=== PATIENT | female | born 1995 | race Caucasian/White ===

== ENCOUNTER 2023-01-13 11:33 | Emergency (ER) | payer MEDICAID, SELFPAY ==
[2023-01-13 11:35] VITALS: BP 128/79; PULSE 88; RESP 18; TEMP 36.7; O2SAT 96; BMI 32.8
[2023-01-13 11:57] LABS: Microscopic, Urine URINE MICROSCOPIC (MICROSCOPIC)
--- NOTE | 2023-01-13 11:57 | HMH.EDGENADL ---
Discharge Plan Disposition Patient Disposition: Home, Self-Care Prescriptions Prescriptions: New ibuprofen 800 mg tablet 800 mg PO TID PRN (Reason: pain) 7 Days Qty: 20 0RF ondansetron 4 mg tablet,disintegrating 4 mg PO Q6H PRN (Reason: nausea and vomiting) 5 Days Qty: 20 0RF cefdinir 300 mg capsule 300 mg PO BID 10 Days Qty: 20 0RF Referrals Follow up/Referrals: Mariposa Dunaway APRN [Primary Care Provider] - See instructions Activity Restrictions/Add. Instructions Additional Instructions/Restrictions: There is some diagnostic uncertainty with your case. With your recent urinary tract infection being on the medication that does not get good renal penetration now with your tenderness over your right kidney clinically I am treating you for acute pyelonephritis which is an infection of your kidney. Urine culture has been sent please follow-up on this in 2 to 3 days to make sure you are on the right antibiotic if there is any growth. That being said your urinalysis today was unremarkable from an infectious standpoint there is no blood there is also no evidence of hydronephrosis or swelling of your kidney on bedside ultrasound. In an effort to decrease radiation exposure we opted to not get a CT scan but if your symptoms worsen namely worsening nausea vomiting abdominal pain high fevers please return to the emergency department to broaden our differential. Please keep your appointment with urology as scheduled. Clinical Impressions Clinical Impression: Pyelonephritis Instructions Patient Instructions: DI for Urinary Tract Infection (UTI), DI for Urinary Tract Infection in Children Discharge ED Provider: Haley Pham General Adult HPI General Chief complaint: Urogenital-Female Stated complaint: Rt side lower back pain Time Seen by Provider: 01/13/23 11:39 Mode of Arrival: Ambulatory Source of Information: Patient Limitations: No Limitations Description of Symptoms (Recalled from ER Triage Doc. by RN): Patient reports having a prolapsed bladder and recurrent UTIs. States she is currently on antibiotic for a UTI. Complaint of right sided back pain that started approx Dec 28. Patient spoke with urologist and was told to come to the er for evaluation History of Present Illness HPI narrative: Patient is a 27-year-old female here with right flank pain after recent diagnosis of urinary tract infection for which she is on Macrobid. States that she is followed by Dr. Lentz at [place] and is known to have bladder prolapse which caused her to have frequent urinary tract infections. States that some of her dysuria has improved but she has had some significant right constant flank pain which she states is around the kidney area. No intermittent component of this no hematuria that she is aware of. No fevers or chills. She has follow-up outpatient with urology for some unspecified imaging but they were unable to get her in today and told her to come to the emergency department. Related Data Previous Rx's Medication Instructions Recorded cefdinir 300 mg capsule 300 mg PO BID 10 days #20 caps 01/13/23 ibuprofen 800 mg tablet 800 mg PO TID PRN pain 7 days #20 01/13/23 tabs ondansetron 4 mg disintegrating 4 mg PO Q6H PRN nausea and 01/13/23 tablet vomiting 5 days #20 tabs Allergies Allergy/AdvReac Type Severity Reaction Status Date / Time ciprofloxacin [From Cipro] Allergy Verified 01/13/23 11:45 PFSH [facility] Disclaimer: The information contained in this section may have been updated after the patient was seen, as this information can be updated by other users. Social History Smoking Status: Current every day smoker alcohol intake: never current occupational status: other Travel in the last 8 weeks: None ROS Obtained: Yes All systems reviewed & no additional complaints except as documented Physical Exam General General appearance: alert Respiratory Respiratory exam: Present normal lung dany
[2023-01-13 12:00] VITALS: BP 113/68; PULSE 101; O2SAT 96
[2023-01-13 12:01] LABS: Appearance,Urine CLEAR (Clear); Blood, Urine Negative (Negative); Color,Urine YELLOW (Yellow); Glucose,Urine (UA) Negative (Negative); Ketones,Urine 1+ (Negative); Leukocyte Esterase,Urine Negative (Negative); Nitrate,Urine Negative (Negative); Protein,Urine Negative (Negative); Urobilinogen,Urine 0.2 EU/dl (0.2)
[2023-01-13 12:02] VITALS: BP 104/65; PULSE 83; O2SAT 96
[2023-01-13 12:11] LABS: Urine Pregnancy, HCG Qual. Negative (Negative)
[2023-01-13 12:14] LABS: Bilirubin,Urine 1+ (Negative)
[2023-01-13 12:23] LABS: Basophils % 0.3 % (0.1-2.0); Eosinophils # 0.2 K/mm3 (0.0-0.4); Eosinophils % 2.5 % (0.1-12.0); Hematocrit 40.8 % (37.0-47.0); Hemoglobin 13.8 g/dL (12.2-16.2); Lymphocytes % 31.3 % (10-50); Mean Corpuscular HGB Conc 33.9 g/dL (31.8-35.4); Mean Corpuscular Hemoglobin 31.1 pg (27.0-31.2); Mean Corpuscular Volume 91.8 fl (81-99); Mean Platelet Volume 7.3 fl (7.4-10.4); Monocytes # 0.3 K/mm3 (0.1-1.0); Monocytes % 4.7 % (1.7-9.3); Neutrophils % 61.3 % (37.0-80.0); Platelet Count 352 K/mm3 (142-424); Red Blood Count 4.44 M/mm3 (4.20-5.40); White Blood Count 6.5 K/mm3 (4.8-10.8)
[2023-01-13 12:28] LABS: Alanine Aminotransferase 23 U/L (12-78); Albumin Level 4.3 g/dl (3.5-5.0); Albumin/Globulin Ratio 1.3 (1.1-1.8); Alkaline Phosphatase 60 U/L (38-126); Anion Gap 11.1 mEq/L (5-15); Aspartate Amino Transferase 29 U/L (14-36); Bilirubin,Total 0.5 mg/dl (0.2-1.3); Blood Urea Nitrogen 15 mg/dl (7-17); Carbon Dioxide 26 mmol/L (22.0-30.0); Chloride 106 mmol/L (98-107); Creatinine Clearance Estimated 214 mL/min (50-200); Estimated Glomerular Filt Rate 121 ml/min (>60); GFR (African American) 146 ML/MIN (>60); Globulin 3.2 g/dL (1.3-3.2); Glucose 104 mg/dl (74-100); Potassium 4.1 mmoL/L (3.5-5.1); Sodium 139 mmol/L (136-145); Total Protein,Serum 7.5 g/dl (6.3-8.2)
[2023-01-13 13:17] VITALS: BP 129/88; PULSE 78; RESP 18; TEMP 36.7; O2SAT 98
== END 2023-01-13 13:18 | disposition home or self-care (01) ==
PROVIDERS: Emergency Provider Student in an Organized Health Care Education/Training Program; PCP Nurse Practitioner Family
DX: N10 Acute pyelonephritis (principal); M54.59 Other low back pain; R11.2 Nausea with vomiting, unspecified; F17.210 Nicotine dependence, cigarettes, uncomplicated
CPT/HCPCS: 80053; 81001; 81025; 85025; 87086; 96361; 96374; 96375; 99284; J0131; J2405

== ENCOUNTER 2023-01-14 18:20 | Emergency (ER) | payer MEDICAID, SELFPAY ==
[2023-01-14 18:21] VITALS: BP 153/84; PULSE 89; RESP 18; TEMP 36.6; O2SAT 97; BMI 33.3
--- NOTE | 2023-01-14 18:28 | PC.NURSE ---
family and staff at
[2023-01-14 19:00] VITALS: BP 147/94; PULSE 94; RESP 18; O2SAT 97
--- NOTE | 2023-01-14 19:07 | CT_ITS ---
PROCEDURE INFORMATION: Exam: CT Abdomen And Pelvis With Contrast Exam date and time: 01/14/2023 8:03 PM Age: 27 years old Clinical indication: Abdominal pain; Other: R flank; Additional info: R flank pain, concern for pyelonephritis TECHNIQUE: Imaging protocol: Computed tomography of the abdomen and pelvis with contrast. Radiation optimization: All CT scans at this facility use at least one of these dose optimization techniques: automated exposure control; mA and/or kV adjustment per patient size (includes targeted exams where dose is matched to clinical indication); or iterative reconstruction. Contrast material: ISOVUE 370; Contrast volume: 75 ml; Contrast route: IV; REPORTING DATA: Count of CT and Cardiac NM exams in prior 12 months: This patient has received 0 known CTs and 0 known cardiac nuclear medicine studies in the 12 months prior to the current study. COMPARISON: No relevant prior studies available. FINDINGS: Liver: Mild fatty infiltration of the liver along the falciform ligament. Possible hepatic steatosis. Gallbladder and bile ducts: Normal. No calcified stones. No ductal dilation. Pancreas: Normal. No ductal dilation. Spleen: Normal. No splenomegaly. Adrenal glands: Normal. No mass. Kidneys and ureters: Normal. No hydronephrosis. Stomach and bowel: Unremarkable. No obstruction. No mucosal thickening. Appendix: Unremarkable appendix. Intraperitoneal space: Unremarkable. No free air. No significant fluid collection. Vasculature: Unremarkable. No abdominal aortic aneurysm. Lymph nodes: Unremarkable. No enlarged lymph nodes. Urinary bladder: Mild nonspecific urinary bladder wall thickening. Reproductive: Unremarkable as visualized. Bones/joints: Old bilateral rib fractures. Soft tissues: Tiny fat containing umbilical hernia. Other findings: Stigmata of old granulomatous disease. IMPRESSION: Mild nonspecific urinary bladder wall thickening. Please exclude infection.
--- NOTE | 2023-01-14 19:15 | PC.NURSE ---
Report handed off to Shakeel ESTEBAN
--- NOTE | 2023-01-14 19:16 | HMH.EDGENADL ---
Discharge Plan Disposition Patient Disposition: Home, Self-Care Condition: Good Prescriptions Prescriptions: New lidocaine 5 % adhesive patch,medicated 1 patch topical Q24H Qty: 15 0RF Rx Instructions: leave on most painful area for up to 12 hrs methocarbamol 500 mg tablet 500 mg PO Q8H 7 Days Qty: 21 0RF No Action ibuprofen 800 mg tablet 800 mg PO TID PRN (Reason: pain) 7 Days Qty: 20 0RF ondansetron 4 mg tablet,disintegrating 4 mg PO Q6H PRN (Reason: nausea and vomiting) 5 Days Qty: 20 0RF cefdinir 300 mg capsule 300 mg PO BID 10 Days Qty: 20 0RF Referrals Follow up/Referrals: Mariposa Dunaway APRN [Primary Care Provider] - See instructions Activity Restrictions/Add. Instructions Additional Instructions/Restrictions: You have been evaluated in the ED for your complaints. You may follow-up with your PCP in the next 3 to 5 days. Please return to ED for any new or worsening symptoms. I have provided you with lidocaine patches to further assist with your discomfort. I have also ordered for Robaxin. Please take these as needed. Please continue taking your antibiotics as prescribed. Clinical Impressions Clinical Impression: Right flank pain, Back pain Instructions Patient Instructions: DI for Acute Abdominal Pain Discharge ED Provider: John Partida Adult HPI General Chief complaint: Abdominal Pain Stated complaint: lower back and side pain Time Seen by Provider: 01/14/23 18:30 Mode of Arrival: Ambulatory Source of Information: Patient Limitations: No Limitations Description of Symptoms (Recalled from ER Triage Doc. by RN): Presents to ED with c/o constant 7/10 right sided flank pain and diarrhea. Patient reports being seen yesterday in the ER with the same chief complaint and was D/C'd with no relief. Patient states this has been going on for 19 days now that started off as a UTI but has progressively gotten worse. Patient Rx'd Macrobid and Cefdinir. Denies fever. 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 Denies urinary symptoms History of Present Illness HPI narrative: 27-year-old female with past medical history significant for prolapsed bladder, recurrent UTIs on Macrobid daily, asthma, anxiety, depression, DM on metformin, presents today for evaluation concerning right-sided flank pain that is persisted since December 28. Her pain today does not radiate. She states that she was seen in the ED yesterday and was diagnosed with pyelonephritis and discharged with prescription for cefdinir to treat. She denies having any fevers, chills, chest pain, shortness of breath, abdominal pain, nausea, vomiting. She does report that she has been having nonbloody diarrhea over the past 3 days. She took ibuprofen and her milligrams 1 hour prior to arrival. No further complaints at this time Related Data Previous Rx's Medication Instructions Recorded cefdinir 300 mg capsule 300 mg PO BID 10 days #20 caps 01/13/23 ibuprofen 800 mg tablet 800 mg PO TID PRN pain 7 days #20 01/13/23 tabs ondansetron 4 mg disintegrating 4 mg PO Q6H PRN nausea and 01/13/23 tablet vomiting 5 days #20 tabs lidocaine 5 % topical patch 1 patch topical Q24H #15 ea 01/14/23 methocarbamol 500 mg tablet 500 mg PO Q8H 7 days #21 tabs 01/14/23 Allergies Allergy/AdvReac Type Severity Reaction Status Date / Time adhesive tape Allergy Rash Verified 01/14/23 19:19 ciprofloxacin [From Cipro] Allergy Verified 01/13/23 11:45 PFSH PFSH Disclaimer: The information contained in this section may have been updated after the patient was seen, as this information can be updated by other users. Social History (Updated 01/13/23 @ 12:53 by Haley Pham MD) Smoking Status: Current every day smoker alcohol intake: never current occupational status: other Travel in the last 8 weeks: None ROS Obtained: Yes All systems reviewed & no additional complaints except as documented Physical Exam General General appearance:
[2023-01-14 19:22] LABS: Microscopic, Urine URINE MICROSCOPIC (MICROSCOPIC)
[2023-01-14 19:25] LABS: Basophils # 0.1 K/mm3 (0-0.2); Basophils % 0.6 % (0.1-2.0); Eosinophils # 0.2 K/mm3 (0.0-0.4); Eosinophils % 2.5 % (0.1-12.0); Hematocrit 41.5 % (37.0-47.0); Lymphocytes # 2.5 K/mm3 (0.7-4.5); Lymphocytes % 26.8 % (10-50); Mean Corpuscular HGB Conc 33.7 g/dL (31.8-35.4); Mean Corpuscular Hemoglobin 31.4 pg (27.0-31.2); Mean Corpuscular Volume 93.2 fl (81-99); Mean Platelet Volume 7.8 fl (7.4-10.4); Monocytes # 0.3 K/mm3 (0.1-1.0); Monocytes % 3.5 % (1.7-9.3); Neutrophils # 6.2 K/mm3 (1.8-7.8); Neutrophils % 66.5 % (37.0-80.0); Platelet Count 366 K/mm3 (142-424); Red Blood Count 4.45 M/mm3 (4.20-5.40); Red Cell Distribution Width 13.2 % (11.5-17.5); White Blood Count 9.3 K/mm3 (4.8-10.8)
[2023-01-14 19:30] VITALS: BP 125/84; PULSE 86; RESP 20; O2SAT 98
--- NOTE | 2023-01-14 19:33 | PC.NURSE ---
Sit visit with pt, introduced myself after shift change, administered medication, no acute distress noted/reported
[2023-01-14 19:37] LABS: Appearance,Urine CLEAR (Clear); Bilirubin,Urine Negative (Negative); Blood, Urine Negative (Negative); Color,Urine YELLOW (Yellow); Glucose,Urine (UA) Negative (Negative); Ketones,Urine TRACE (Negative); Leukocyte Esterase,Urine Negative (Negative); Nitrate,Urine Negative (Negative); PH,Urine 6.5 (5.0-8.5); Protein,Urine Negative (Negative); Specific Gravity, Urine 1.025 (1.005-1.030); Urobilinogen,Urine 0.2 EU/dl (0.2)
[2023-01-14 19:38] LABS: Alanine Aminotransferase 20 U/L (12-78); Albumin Level 4.6 g/dl (3.5-5.0); Albumin/Globulin Ratio 1.5 (1.1-1.8); Alkaline Phosphatase 59 U/L (38-126); Anion Gap 13.9 mEq/L (5-15); Aspartate Amino Transferase 26 U/L (14-36); Bilirubin,Total 0.3 mg/dl (0.2-1.3); Blood Urea Nitrogen 14 mg/dl (7-17); Calcium 9.4 mg/dl (8.4-10.2); Carbon Dioxide 26 mmol/L (22.0-30.0); Chloride 104 mmol/L (98-107); Creatinine Clearance Estimated 186 mL/min (50-200); Estimated Glomerular Filt Rate 101 ml/min (>60); GFR (African American) 122 ML/MIN (>60); Globulin 3.1 g/dL (1.3-3.2); Glucose 90 mg/dl (74-100); Lipase 147 U/L (23-300); Potassium 3.9 mmoL/L (3.5-5.1); Sodium 140 mmol/L (136-145); Total Protein,Serum 7.7 g/dl (6.3-8.2)
[2023-01-14 19:49] LABS: HCG Qualitative, Serum Negative (Negative)
[2023-01-14 19:53] LABS: RBC,Urine Occasional #/hpf (0-3)
[2023-01-14 19:54] LABS: Bacteria,Urine Trace /lpf; Mucus,Urine 3+ /lpf
[2023-01-14 20:12] LABS: Lactic Acid < 0.5 mmol/L (0.7-2.1)
[2023-01-14 20:31] VITALS: BP 129/79; PULSE 92; RESP 18; O2SAT 99
--- NOTE | 2023-01-14 20:38 | PC.NURSE ---
Reassessed pt after 2nd pain medication administration, reports pain relieved from previous 11/06 to 09/06, reports increased nausea since administration, advised would notify provider.
[2023-01-14 21:00] VITALS: BP 140/65; PULSE 94; RESP 16; O2SAT 96
--- NOTE | 2023-01-14 22:25 | PC.NURSE ---
patient reassessed after administration of toradol, reports pain 5/10, advised that provider is making rounds and will consult momentarily
[2023-01-14 22:46] VITALS: BP 124/88; PULSE 88; RESP 16; TEMP 36.7
== END 2023-01-14 22:48 | disposition home or self-care (01) ==
PROVIDERS: Emergency Provider Emergency Medicine; PCP Nurse Practitioner Family
DX: R10.31 Right lower quadrant pain (principal); M54.59 Other low back pain; F17.210 Nicotine dependence, cigarettes, uncomplicated; E11.9 Type 2 diabetes mellitus without complications; J45.909 Unspecified asthma, uncomplicated; F41.9 Anxiety disorder, unspecified; F32.A Depression, unspecified; Z79.84 Long term (current) use of oral hypoglycemic drugs
CPT/HCPCS: 74177; 80053; 81001; 83605; 83690; 84703; 85025; 96374; 96375; 96376; 99284; J2405; Q9967

== ENCOUNTER 2023-01-20 18:39 | Emergency (ER) | payer MEDICAID, SELFPAY ==
[2023-01-20 18:40] VITALS: BP 142/86; PULSE 89; RESP 20; TEMP 36.8; O2SAT 99; BMI 33.8
[2023-01-20 19:41] LABS: Microscopic, Urine URINE MICROSCOPIC (MICROSCOPIC)
[2023-01-20 19:42] LABS: Appearance,Urine CLEAR (Clear); Bilirubin,Urine Negative (Negative); Blood, Urine 3+ (Negative); Color,Urine YELLOW (Yellow); Glucose,Urine (UA) Negative (Negative); Ketones,Urine Negative (Negative); Leukocyte Esterase,Urine Negative (Negative); Nitrate,Urine Negative (Negative); Protein,Urine Negative (Negative); Urobilinogen,Urine 0.2 EU/dl (0.2)
[2023-01-20 20:01] LABS: Squamous Epithelial Cell,Urine Occasional #/hpf (0-5); WBC,Urine Occasional #/hpf (0-3)
--- NOTE | 2023-01-20 20:19 | HMH.EDGENADL ---
Discharge Plan Disposition Patient Disposition: Home, Self-Care Prescriptions Prescriptions: New prednisone 20 mg tablet 40 mg PO BID 5 Days Qty: 20 0RF No Action lidocaine 5 % adhesive patch,medicated 1 patch topical Q24H Qty: 15 0RF Rx Instructions: leave on most painful area for up to 12 hrs methocarbamol 500 mg tablet 500 mg PO Q8H 7 Days Qty: 21 0RF ibuprofen 800 mg tablet 800 mg PO TID PRN (Reason: pain) 7 Days Qty: 20 0RF ondansetron 4 mg tablet,disintegrating 4 mg PO Q6H PRN (Reason: nausea and vomiting) 5 Days Qty: 20 0RF cefdinir 300 mg capsule 300 mg PO BID 10 Days Qty: 20 0RF Referrals Follow up/Referrals: Mariposa Dunaway APRN [Primary Care Provider] - See instructions Activity Restrictions/Add. Instructions Additional Instructions/Restrictions: Call your family doctor to establish care for this visit to the emergency department and schedule follow-up within 48 hours to ensure improvement. If you have any worsening of your condition or any other concerning signs or symptoms, return to the emergency department or your primary care doctor for further evaluation. See your family doctor about scheduling physical therapy. Take prednisone daily for 5 days. Talk to your CHILD DEVELOPMENT ASSOCIATE TEACHER about a pessary or other nonsurgical fixes for bladder prolapse. Clinical Impressions Clinical Impression: Back pain Instructions Patient Instructions: DI for Low Back Pain Discharge ED Provider: Caleb Galo General Adult HPI General Chief complaint: Back Pain/Injury Stated complaint: lower back pain Time Seen by Provider: 01/20/23 19:01 Mode of Arrival: Ambulatory Source of Information: Patient Limitations: No Limitations Description of Symptoms (Recalled from ER Triage Doc. by RN): Pt presents with mid thoracic and lumbar pain x 1month. Denies any loss of bowel or bladder control. Previously seen for this issue, given muscle relaxer and anti inflammatory medication, no relief with them. History of Present Illness HPI narrative: 27-year-old female history of chronic UTIs, bladder prolapse presenting with midline back pain. Atraumatic, this has been going on for about a month. No neurologic deficits, patient has tried lidocaine patches, Tylenol Motrin, nothing seem to help. No fevers or chills, nausea or vomiting, dysuria or hematuria. Related Data Previous Rx's Medication Instructions Recorded cefdinir 300 mg capsule 300 mg PO BID 10 days #20 caps 01/13/23 ibuprofen 800 mg tablet 800 mg PO TID PRN pain 7 days #20 01/13/23 tabs ondansetron 4 mg disintegrating 4 mg PO Q6H PRN nausea and 01/13/23 tablet vomiting 5 days #20 tabs lidocaine 5 % topical patch 1 patch topical Q24H #15 ea 01/14/23 methocarbamol 500 mg tablet 500 mg PO Q8H 7 days #21 tabs 01/14/23 prednisone 20 mg tablet 40 mg PO BID 5 days #20 tabs 01/20/23 Allergies Allergy/AdvReac Type Severity Reaction Status Date / Time adhesive tape Allergy Rash Verified 01/14/23 19:19 ciprofloxacin [From Cipro] Allergy [facility]13/23 [facility]:[address] [facility] Disclaimer: The information contained in this section may have been updated after the patient was seen, as this information can be updated by other users. Social History (Updated 01/13/23 @ 12:53 by Haley Pham MD) Smoking Status: Current every day smoker alcohol intake: never current occupational status: other Travel in the last 8 weeks: None ROS Obtained: Yes All systems reviewed & no additional complaints except as documented Physical Exam General General appearance: alert and in no apparent distress Head Head exam: atraumatic and normocephalic Eye Eye exam: Present normal appearance, PERRL and EOMI ENT ENT exam: Present mucous membranes moist Neck Neck exam: Present normal inspection, full ROM and trachea midline Respiratory Respiratory exam: Absent respiratory distress, wheezes, stridor, accessory muscle use or prolonged expiratory phase Cardio
[2023-01-20 22:20] VITALS: BP 116/73; PULSE 77; RESP 18; TEMP 36.6; O2SAT 99
== END 2023-01-20 22:21 | disposition home or self-care (01) ==
PROVIDERS: Emergency Provider Emergency Medicine; PCP Nurse Practitioner Family
DX: M54.50 Low back pain, unspecified (principal)
CPT/HCPCS: 81001; 99284

== ENCOUNTER 2023-03-02 17:20 | Emergency (ER) | payer MEDICAID, SELFPAY ==
[2023-03-02 17:21] VITALS: BP 121/69; PULSE 94; RESP 16; TEMP 36.6; O2SAT 100; BMI 32.8
--- NOTE | 2023-03-02 18:00 | PC.NURSE ---
Dr. Pham at [facility] for pt eval
[2023-03-02 18:01] LABS: Basophils % 0.5 % (0.1-2.0); Eosinophils # 0.1 K/mm3 (0.0-0.4); Eosinophils % 1.2 % (0.1-12.0); Lymphocytes # 3.3 K/mm3 (0.7-4.5); Lymphocytes % 35.3 % (10-50); Mean Corpuscular HGB Conc 33.2 g/dL (31.8-35.4); Mean Corpuscular Hemoglobin 30.9 pg (27.0-31.2); Mean Corpuscular Volume 93.1 fl (81-99); Mean Platelet Volume 7.8 fl (7.4-10.4); Monocytes # 0.4 K/mm3 (0.1-1.0); Neutrophils # 5.5 K/mm3 (1.8-7.8); Platelet Count 363 K/mm3 (142-424); Red Blood Count 4.51 M/mm3 (4.20-5.40); Red Cell Distribution Width 13.3 % (11.5-17.5); White Blood Count 9.2 K/mm3 (4.8-10.8)
[2023-03-02 18:10] LABS: Alanine Aminotransferase 19 U/L (12-78); Albumin Level 4.2 g/dl (3.5-5.0); Albumin/Globulin Ratio 1.4 (1.1-1.8); Alkaline Phosphatase 63 U/L (38-126); Anion Gap 8.7 mEq/L (5-15); Aspartate Amino Transferase 26 U/L (14-36); Bilirubin,Total 0.4 mg/dl (0.2-1.3); Blood Urea Nitrogen 12 mg/dl (7-17); Calcium 8.7 mg/dl (8.4-10.2); Carbon Dioxide 24 mmol/L (22.0-30.0); Chloride 108 mmol/L (98-107); Creatinine Clearance Estimated 183 mL/min (50-200); Estimated Glomerular Filt Rate 101 ml/min (>60); GFR (African American) 122 ML/MIN (>60); Globulin 3.1 g/dL (1.3-3.2); Glucose 81 mg/dl (74-100); Lipase 24 U/L (23-300); Potassium 3.7 mmoL/L (3.5-5.1); Sodium 137 mmol/L (136-145); Total Protein,Serum 7.3 g/dl (6.3-8.2)
--- NOTE | 2023-03-02 18:15 | PC.NURSE ---
Rounded on patient call light within reach of patient
--- NOTE | 2023-03-02 18:17 | HMH.EDGENADL ---
Discharge Plan Disposition Patient Disposition: Home, Self-Care Prescriptions Prescriptions: New promethazine 25 mg tablet 25 mg PO TID PRN (Reason: nausea and vomiting) 5 Days Qty: 20 0RF ondansetron 4 mg tablet,disintegrating 4 mg PO Q6H PRN (Reason: nausea and vomiting) 5 Days Qty: 20 0RF No Action lidocaine 5 % adhesive patch,medicated 1 patch topical Q24H Qty: 15 0RF Rx Instructions: leave on most painful area for up to 12 hrs methocarbamol 500 mg tablet 500 mg PO Q8H 7 Days Qty: 21 0RF prednisone 20 mg tablet 40 mg PO BID 5 Days Qty: 20 0RF ibuprofen 800 mg tablet 800 mg PO TID PRN (Reason: pain) 7 Days Qty: 20 0RF ondansetron 4 mg tablet,disintegrating 4 mg PO Q6H PRN (Reason: nausea and vomiting) 5 Days Qty: 20 0RF cefdinir 300 mg capsule 300 mg PO BID 10 Days Qty: 20 0RF Referrals Follow up/Referrals: Mariposa Dunaway APRN [Primary Care Provider] - See instructions Activity Restrictions/Add. Instructions Additional Instructions/Restrictions: No evidence of emergent medical condition identified today. Please take your nausea medicine as needed at home return with any worsening symptoms. Your symptoms are most likely viral in nature today. Clinical Impressions Clinical Impression: Nausea vomiting and diarrhea, Abdominal pain, RUQ Instructions Patient Instructions: DI for Acute Abdominal Pain Discharge ED Provider: Haley Pham General Adult HPI General Chief complaint: Abdominal Pain Stated complaint: abd pain radiating to back, vomiting Time Seen by Provider: 03/02/23 17:58 Mode of Arrival: Ambulatory Source of Information: Patient Limitations: No Limitations Description of Symptoms (Recalled from ER Triage Doc. by RN): c/o upper right quad pain that goes around to the right side into her back with vomiting that started this am. History of Present Illness HPI narrative: Patient is a 27-year-old female with a history of IBS presents today with nausea vomiting diarrhea right upper quadrant abdominal pain radiating to her right subscapular region. No history of any gallbladder disease that she is aware of. Denies any fevers or chills denies any blood in her stool or vomit. No focal tenderness elsewhere. No history of any kidney stones. Related Data Previous Rx's Medication Instructions Recorded cefdinir 300 mg capsule 300 mg PO BID 10 days #20 caps 01/13/23 ibuprofen 800 mg tablet 800 mg PO TID PRN pain 7 days #20 01/13/23 tabs ondansetron 4 mg disintegrating 4 mg PO Q6H PRN nausea and 01/13/23 tablet vomiting 5 days #20 tabs lidocaine 5 % topical patch 1 patch topical Q24H #15 ea 01/14/23 methocarbamol 500 mg tablet 500 mg PO Q8H 7 days #21 tabs 01/14/23 prednisone 20 mg tablet 40 mg PO BID 5 days #20 tabs 01/20/23 ondansetron 4 mg disintegrating 4 mg PO Q6H PRN nausea and 03/02/23 tablet vomiting 5 days #20 tabs promethazine 25 mg tablet 25 mg PO TID PRN nausea and 03/02/23 vomiting 5 days #20 tabs Allergies Allergy/AdvReac Type Severity Reaction Status Date / Time adhesive tape Allergy Rash Verified 01/14/23 19:19 ciprofloxacin [From Cipro] Allergy Verified 01/13/23 11:45 PFS PFS Disclaimer: The information contained in this section may have been updated after the patient was seen, as this information can be updated by other users. Social History (Updated 01/13/23 @ 12:53 by Haley Pham MD) Smoking Status: Current every day smoker alcohol intake: never current occupational status: other Travel in the last 8 weeks: None ROS Obtained: Yes All systems reviewed & no additional complaints except as documented Physical Exam General General appearance: alert Respiratory Respiratory exam: Present normal lung sounds bilaterally Cardiovascular Cardiovascular exam: Present regular rate Abdominal Exam Abdominal exam: Present soft and tenderness (Right upper quadrant tenderness to palpation no rebound or guarding no
[2023-03-02 18:29] LABS: HCG Qualitative, Serum Negative (Negative)
[2023-03-02 18:30] VITALS: BP 122/76; PULSE 89; O2SAT 96
--- NOTE | 2023-03-02 18:42 | PC.NURSE ---
Pt provided with warm blanket. No other needs voiced. Call light within reach.
[2023-03-02 18:50] LABS: Appearance,Urine CLEAR (Clear); Blood, Urine Negative (Negative); Color,Urine YELLOW (Yellow); Glucose,Urine (UA) TRACE (Negative); Ketones,Urine 1+ (Negative); Leukocyte Esterase,Urine Negative (Negative); Microscopic, Urine URINE MICROSCOPIC (MICROSCOPIC); Nitrate,Urine Negative (Negative); Protein,Urine TRACE (Negative); Specific Gravity, Urine 1.025 (1.005-1.030); Urobilinogen,Urine 0.2 EU/dl (0.2)
--- NOTE | 2023-03-02 18:52 | ECG_ITS ---
APPROVED REPORT Exam: Resting ECG HR:71 bpm ECG Measurements Heart Rate 71 AXES MO 129 P 28 QRSd 105 QRS 72 QT 371 T 38 QTc 393 Conclusion SINUS RHYTHM NORMAL ECG UNCONFIRMED REPORT Electronically signed by : Michael Sahu MD 03/03/2023 10:17:59
[2023-03-02 18:55] LABS: Bilirubin,Urine 1+ (Negative)
[2023-03-02 19:00] VITALS: BP 105/63; PULSE 77; RESP 15; O2SAT 95
--- NOTE | 2023-03-02 19:11 | PC.NURSE ---
Rounded on patient call light within reach of patient
[2023-03-02 19:14] LABS: Squamous Epithelial Cell,Urine Occasional #/hpf (0-5)
[2023-03-02 19:30] VITALS: BP 123/80; PULSE 87; RESP 18; O2SAT 95
[2023-03-02 19:59] VITALS: BP 123/80; PULSE 77; RESP 17; TEMP 36.7; O2SAT 95
== END 2023-03-02 20:03 | disposition home or self-care (01) ==
PROVIDERS: Emergency Provider Student in an Organized Health Care Education/Training Program; PCP Nurse Practitioner Family
DX: R10.11 Right upper quadrant pain (principal); R11.2 Nausea with vomiting, unspecified; R19.7 Diarrhea, unspecified; F17.200 Nicotine dependence, unspecified, uncomplicated
CPT/HCPCS: 80053; 81001; 83690; 84703; 85025; 93005; 96361; 96374; 96375; 99285; J1790; J2405

== ENCOUNTER 2023-04-30 23:31 | Emergency (ER) | payer MEDICAID, SELFPAY ==
[2023-04-30 23:33] VITALS: BP 140/94; PULSE 98; RESP 20; TEMP 36.4; O2SAT 99; BMI 31.3
--- NOTE | 2023-04-30 23:57 | CT_ITS ---
PROCEDURE INFORMATION: Exam: CT Abdomen And Pelvis Without Contrast Exam date and time: 05/01/2023 12:32 AM Age: 28 years old Clinical indication: Abdominal pain; Additional info: Right flank/rlq pain TECHNIQUE: Imaging protocol: Computed tomography of the abdomen and pelvis without contrast. Radiation optimization: All CT scans at this facility use at least one of these dose optimization techniques: automated exposure control; mA and/or kV adjustment per patient size (includes targeted exams where dose is matched to clinical indication); or iterative reconstruction. COMPARISON: CT ABDOMEN PELVIS W CON 01/14/2023 8:03 PM FINDINGS: Lungs: Stable 3 mm nodule of the left lung base. For patients at low risk (minimal or absent history of smoking and of other known risk factors), no routine follow-up is indicated. For patients at high risk (history of smoking or of other known risk factors), consider optional CT Chest at 12 months. (Reference: Abdulaziz). Liver: Normal. Gallbladder and bile ducts: Normal. Pancreas: Normal. Spleen: Normal. Adrenal glands: The adrenal glands appear normal. Kidneys and ureters: There are no soft tissue renal masses or hydronephrosis. Stomach and bowel: Mildly distended right lower quadrant small bowel loops without focal point of obstruction could reflect enteritis. Appendix: The appendix is normal in appearance. Intraperitoneal space: Unremarkable. Vasculature: The abdominal aorta and its major branches appear normal without evidence of aneurysm or stenosis. There are pelvic phleboliths. Lymph nodes: No lymphadenopathy. Urinary bladder: There is mild bladder wall thickening, possibly due to under distention and a nonspecific finding. Reproductive: Unremarkable. Bones/joints: The visualized osseous structures of the abdomen and pelvis appear normal for patient age. Soft tissues: There is a small fat containing umbilical hernia. Subcutaneous air over the right buttock, likely related to prior injection. IMPRESSION: 1. Normal appendix. 2. Mildly distended right lower quadrant small bowel loops without focal point of obstruction could reflect enteritis. 3. Stable 3 mm nodule of the left lung base. For patients at low risk (minimal or absent history of smoking and of other known risk factors), no routine follow-up is indicated. For patients at high risk (history of smoking or of other known risk factors), consider optional CT Chest at 12 months. (Reference: Abdulaziz). REFERENCES: Abdulaziz Phipps, et al. Guidelines for Management of Incidental Pulmonary Nodules Detected on CT Images: From the Fleischner Society 2017. Radiology. 2017;284(1):228-243.
--- NOTE | 2023-04-30 23:58 | ED_ITS ---
Discharge Plan Disposition Patient Disposition: Home, Self-Care Prescriptions Prescriptions: No Action lidocaine 5 % adhesive patch,medicated 1 patch topical Q24H Qty: 15 0RF Rx Instructions: leave on most painful area for up to 12 hrs methocarbamol 500 mg tablet 500 mg PO Q8H 7 Days Qty: 21 0RF prednisone 20 mg tablet 40 mg PO BID 5 Days Qty: 20 0RF ibuprofen 800 mg tablet 800 mg PO TID PRN (Reason: pain) 7 Days Qty: 20 0RF ondansetron 4 mg tablet,disintegrating 4 mg PO Q6H PRN (Reason: nausea and vomiting) 5 Days Qty: 20 0RF cefdinir 300 mg capsule 300 mg PO BID 10 Days Qty: 20 0RF promethazine 25 mg tablet 25 mg PO TID PRN (Reason: nausea and vomiting) 5 Days Qty: 20 0RF ondansetron 4 mg tablet,disintegrating 4 mg PO Q6H PRN (Reason: nausea and vomiting) 5 Days Qty: 20 0RF Referrals Follow up/Referrals: Mariposa Dunaway APRN [Primary Care Provider] - See instructions Activity Restrictions/Add. Instructions Additional Instructions/Restrictions: Please follow-up with your primary care provider. Please return to the emergency department if you develop any new or worsening symptoms or become concerned for your health. Clinical Impressions Clinical Impression: Acute right flank pain, Abdominal pain, RLQ, Enteritis Stand Alone Forms Stand Alone Forms: Work/School Release Instructions Patient Instructions: DI for Acute Abdominal Pain Discharge ED Provider: Doe Bailey Adult HPI General Chief complaint: Abdominal Pain Stated complaint: Lower back pain,pain with urination Time Seen by Provider: 04/30/23 23:36 Mode of Arrival: Ambulatory Source of Information: Patient Limitations: No Limitations Description of Symptoms (Recalled from ER Triage Doc. by RN): right flank pain for 1 week with nausea, pt has hx of kisney stones and sees in [facility] for urology and chronic UTI History of Present Illness HPI narrative: 28-year-old female presents with 1 week of right flank pain, has been wrapping around to the right groin starting today. Associated with nausea and worsening pain. Denies denies any recent urinary symptoms or fever. Related Data Previous Rx's Medication Instructions Recorded cefdinir 300 mg capsule 300 mg PO BID 10 days #20 caps 01/13/23 ibuprofen 800 mg tablet 800 mg PO TID PRN pain 7 days #20 01/13/23 tabs ondansetron 4 mg disintegrating 4 mg PO Q6H PRN nausea and 01/13/23 tablet vomiting 5 days #20 tabs lidocaine 5 % topical patch 1 patch topical Q24H #15 ea 01/14/23 methocarbamol 500 mg tablet 500 mg PO Q8H 7 days #21 tabs 01/14/23 prednisone 20 mg tablet 40 mg PO BID 5 days #20 tabs 01/20/23 ondansetron 4 mg disintegrating 4 mg PO Q6H PRN nausea and 03/02/23 tablet vomiting 5 days #20 tabs promethazine 25 mg tablet 25 mg PO TID PRN nausea and 03/02/23 vomiting 5 days #20 tabs Allergies Allergy/AdvReac Type Severity Reaction Status Date / Time adhesive tape Allergy Rash Verified 01/14/23 19:19 ciprofloxacin [From Cipro] Allergy Verified 01/13/23 11:45 PFSH PFSH Disclaimer: The information contained in this section may have been updated after the patient was seen, as this information can be updated by other users. Social History (Updated 01/13/23 @ 12:53 by Haley Pham MD) Smoking Status: Current every day smoker alcohol intake: never current occupational status: other Travel in the last 8 weeks: None ROS Obtained: Yes All systems reviewed & no additional complaints except as documented Physical Exam General General appearance: alert and in no apparent distress Head Head exam: atraumatic and normocephalic Eye Eye exam: Present normal appearance, PERRL and EOMI ENT ENT exam: Present normal oropharynx and normal external ear exam Neck Neck exam: Present normal inspection and full ROM Chest Chest inspection: Present normal inspection and symmetric chest wall rise; Absent tenderness Respiratory Respiratory exam: Present normal lung sounds bilaterally; Absent respiratory distress Cardiovascular Cardiovascular exam: Present regular rate; Absent normal rhythm Abdominal Exam Abdominal exam: Present soft; Absent distention or guarding Abdominal tenderness: Present RLQ Extremities Exam Extremities exam: Present normal inspection; Absent edema or joint swelling Back Exam Back exam: Present normal inspection and CVA tenderness (R) Neurological Exam Neurological exam: Present alert and oriented X3; Absent motor sensory deficit Psychiatric Psychiatric exam: Present normal affect and normal mood Skin Skin exam: Present warm, dry and normal color Lymphatic Lymphatic Findings: no adenopathy Medical Decision Making Medical Records Medical records reviewed: Yes I reviewed the patient's medical records. Blas Inquiry Pt receiving controlled substance: No Blas was queried for this patient: No Vital Signs: 04/30/23 23:33 Temperature 97.5 F L Temperature Source Oral Pulse Rate [Right Radial] 98 H Respiratory Rate 20 Blood Pressure [Right Arm] 140/94 H Blood Pressure Mean [Right Arm] 109 02 Sat by Pulse Oximetry 99 Oxygen Delivery Method Room Air Lab Data Lab results reviewed: Yes I reviewed the patient's lab results. Lab Results 04/30/23 00:01: Urine HCG, Qual Negative 04/30/23 23:45: Urine Color Yellow, Urine Appearance Clear, Urine pH 6.5, Ur Specific [place] 1.025, Urine Protein Negative, Urine Glucose (UA) Negative, Urine Ketones Negative, Urine Blood Negative, Urine Nitrate Negative, Urine Bilirubin Negative, Urine Urobilinogen 0.2, Ur Leukocyte Esterase Negative, Urine RBC None, Urine WBC Occasional, Ur Squamous Epith Cells 5-10, Urine Bacteria Trace Orders (Tests/Meds): ED MEDICATIONS Discontinued Medications Generic Name Dose Route Start Last Admin Trade Name Freq PRN Reason Stop Dose Admin Acetaminophen 1,000 mg 04/30/23 23:57 05/01/23 00:10 Acetaminophen 500mg Tab PO 04/30/23 23:58 1,000 mg ONCE ONE Administration Ketorolac Tromethamine 30 mg 04/30/23 23:57 05/01/23 00:10 Ketorolac 30mg/Ml Vial IM 04/30/23 23:58 30 mg ONCE ONE Administration Ondansetron HCl 4 mg 04/30/23 23:57 05/01/23 00:10 Ondansetron 4mg Odt SL 04/30/23 23:58 4 mg ONCE ONE Administration Oxycodone HCl 5 mg 05/01/23 00:53 05/01/23 01:05 Oxycodone 5mg Immediate Release Tablet PO 05/01/23 00:54 5 mg ONCE ONE Administration ORDERS Category Date Time Status CT abdomen pelvis wo con Stat Cat Scan 04/30/23 23:57 Completed US transvaginal Stat Exams 05/01/23 01:23 Ordered UA [Urinalysis and Microscopic] Stat Lab 04/30/23 23:45 Completed Urine , HCG Qual. Stat Lab 05/01/23 00:16 Completed Medical Decision Narrative: 28-year-old female with history of kidney stone presents with 1 week of right flank pain, 1 day of worsening, now with right-sided abdominal groin pain. History was obtained via conversation with patient, chart review. On arrival, patient is [afebrile, hemodynamically stable, satting appropriately, alert, oriented x4, GCS 15], moving all extremities spontaneously. Full physical exam performed and significant for moderate right CVA tenderness, right lower quadrant tenderness Differential includes but is not limited to UTI, pyelonephritis, kidney stone, appendicitis, bowel pathology, ovarian pathology. Patient was given p.o. Tylenol, sublingual Zofran, IM Toradol for symptomatic management and correction of underlying abnormalities. Workup initiated including urinalysis, CT abdomen pelvis without contrast. On re-evaluation, patient continues to have pain. Given 5 p.o. Oxy. Laboratory workup independently interpreted by me and significant for negative , negative urine for infection.. Imaging independently interpreted by me and significant for no evidence of kidney stone or kidney infection, appendix visualized and normal appearance, pelvic structures appear normal. Small amount of right lower quadrant small bowel that is fluid-filled, without transition point, consistent with enteritis. See radiology read for full review of final results. Transvaginal ultrasound was considered, but after extensive discussion with patient, it is felt that a transvaginal ultrasound would likely be of low utility, and patient does not want to wait for an ultrasound to be performed, stating that she has to get back to her child. I am reassured by her history that this is unlikely to be ovarian torsion. Ovarian torsion would not explain her flank pain. We also have the right lower quadrant enteritis that could easily explain her symptoms. No evidence of ovarian enlargement on CT scan is also reassuring, though not conclusive. I offered the patient a transvaginal ultrasound but she ultimately declined. Given patient history, exam and workup, patient's presentation most likely represents right flank pain, right lower quadrant pain, enteritis. Return precautions were given. Patient discharged in stable condition. Procedures Risk/Benefits of Procedure(s) Were Explained: Yes Critical Care Critical Care Time Critical Care Time: No
[2023-05-01] MEDS: KETOROLAC 30MG/ML VIAL 30 MG IM (00:10)
[2023-05-01] MEDS: ACETAMINOPHEN 500MG TAB 1000 MG PO (00:10)
[2023-05-01] MEDS: ONDANSETRON 4MG ODT 4 MG SL (00:10)
[2023-05-01 00:18] LABS: Microscopic, Urine URINE MICROSCOPIC (MICROSCOPIC)
[2023-05-01 00:20] LABS: Appearance,Urine CLEAR (Clear); Bilirubin,Urine Negative (Negative); Blood, Urine Negative (Negative); Color,Urine YELLOW (Yellow); Glucose,Urine (UA) Negative (Negative); Ketones,Urine Negative (Negative); Leukocyte Esterase,Urine Negative (Negative); Nitrate,Urine Negative (Negative); PH,Urine 6.5 (5.0-8.5); Protein,Urine Negative (Negative); Specific Gravity, Urine 1.025 (1.005-1.030); Urobilinogen,Urine 0.2 EU/dl (0.2)
[2023-05-01 00:27] LABS: Urine Pregnancy, HCG Qual. Negative (Negative)
[2023-05-01 00:37] LABS: Bacteria,Urine Trace /lpf; WBC,Urine Occasional #/hpf (0-3)
[2023-05-01] MEDS: OXYCODONE 5MG IMMEDIATE RELEASE TABLET 5 MG PO (01:05)
--- NOTE | 2023-05-01 01:23 | PC.NURSE ---
Notified Shaheed larkin rad to call in general maintenance technician for r/o torsion
[2023-05-01 01:50] VITALS: BP 134/72; PULSE 87; RESP 18; TEMP 36.4; O2SAT 99
== END 2023-05-01 01:54 | disposition home or self-care (01) ==
PROVIDERS: Emergency Provider Emergency Medicine; PCP Nurse Practitioner Family
DX: R10.31 Right lower quadrant pain (principal); K52.9 Noninfective gastroenteritis and colitis, unspecified; M54.50 Low back pain, unspecified; R30.9 Painful micturition, unspecified; R11.0 Nausea; F17.200 Nicotine dependence, unspecified, uncomplicated
CPT/HCPCS: 74176; 81001; 81025; 96372; 99285

== ENCOUNTER 2023-05-28 17:28 | Emergency (ER) | payer MEDICAID, SELFPAY ==
[2023-05-28 17:31] VITALS: BP 144/82; PULSE 107; RESP 18; O2SAT 97; BMI 31.9
--- NOTE | 2023-05-28 17:53 | HMH.EDGENADL ---
Discharge Plan Disposition Patient Disposition: Home, Self-Care Condition: Good Prescriptions Prescriptions: No Action lidocaine 5 % adhesive patch,medicated 1 patch topical Q24H Qty: 15 0RF Rx Instructions: leave on most painful area for up to 12 hrs methocarbamol 500 mg tablet 500 mg PO Q8H 7 Days Qty: 21 0RF prednisone 20 mg tablet 40 mg PO BID 5 Days Qty: 20 0RF ibuprofen 800 mg tablet 800 mg PO TID PRN (Reason: pain) 7 Days Qty: 20 0RF ondansetron 4 mg tablet,disintegrating 4 mg PO Q6H PRN (Reason: nausea and vomiting) 5 Days Qty: 20 0RF cefdinir 300 mg capsule 300 mg PO BID 10 Days Qty: 20 0RF promethazine 25 mg tablet 25 mg PO TID PRN (Reason: nausea and vomiting) 5 Days Qty: 20 0RF ondansetron 4 mg tablet,disintegrating 4 mg PO Q6H PRN (Reason: nausea and vomiting) 5 Days Qty: 20 0RF Referrals Follow up/Referrals: Mariposa Dunaway APRN [Primary Care Provider] - See instructions Activity Restrictions/Add. Instructions Additional Instructions/Restrictions: Please follow-up with your general surgeon as scheduled and your HIDA scan as scheduled or sooner for worsening of your condition or symptoms.. Clinical Impressions Clinical Impression: Abdominal pain, RUQ Discharge ED Provider: Samra Grover General Adult HPI <ALBERTO Lazaro - Last Filed: 05/28/23 20:30> General Chief complaint: Abdominal Pain Stated complaint: pain in right side,hot all over Time Seen by Provider: 05/28/23 17:53 History of Present Illness HPI narrative: Patient presents for evaluation of recurrent right upper quadrant abdominal pain. Patient has had right upper quadrant abdominal pain since her in 2019. She has had a full workup thus far that does not show any acute pathology is currently scheduled to undergo a HIDA scan next week in [facility]. Patient was evaluated by general surgery Dr. Mariam Forde [place] for umbilical hernia where her right upper quadrant abdominal pain was discussed and HIDA scan ordered. Patient reports that she was in the bathroom defecating and she felt a tearing pain in her right upper quadrant that has persisted till now. Patient states that she contacted her PCP in [place] and the person who answered the phone told her to go anywhere else but [facility] she presented here for evaluation. Patient reports nausea but no vomiting diarrhea chest pain fever chills hemoptysis hematochezia melena hematemesis hematuria. Patient reports that the pain is worse after I eat . Patient otherwise denies any other alleviating or aggravating factors. Related Data Previous Rx's Medication Instructions Recorded cefdinir 300 mg capsule 300 mg PO BID 10 days #20 caps 01/13/23 ibuprofen 800 mg tablet 800 mg PO TID PRN pain 7 days #20 01/13/23 tabs ondansetron 4 mg disintegrating 4 mg PO Q6H PRN nausea and 01/13/23 tablet vomiting 5 days #20 tabs lidocaine 5 % topical patch 1 patch topical Q24H #15 ea 01/14/23 methocarbamol 500 mg tablet 500 mg PO Q8H 7 days #21 tabs 01/14/23 prednisone 20 mg tablet 40 mg PO BID 5 days #20 tabs 01/20/23 ondansetron 4 mg disintegrating 4 mg PO Q6H PRN nausea and 03/02/23 tablet vomiting 5 days #20 tabs promethazine 25 mg tablet 25 mg PO TID PRN nausea and 03/02/23 vomiting 5 days #20 tabs Allergies Allergy/AdvReac Type Severity Reaction Status Date / Time adhesive tape Allergy Rash Verified 01/14/23 19:19 ciprofloxacin [From Cipro] Allergy Verified 01/13/23 11:45 PFSH <ALBERTO Lazaro - Last Filed: 05/28/23 20:30> PFSH Disclaimer: The information contained in this section may have been updated after the patient was seen, as this information can be updated by other users. Social History (Updated 01/13/23 @ 12:53 by Haley Pham MD) Smoking Status: Current every day smoker alcohol intake: never current occupational status: other Travel in the last 8 weeks: None <ALBERTO Lazaro - Last Filed: 05/28/23 20:30> ROS Obtained: Yes Systems reviewed as appropriate & no additional complaints except as documented Physical Exam <ALBERTO Lazaro - Last Filed: 05/28/23 20:30> General General appearance: alert and in no apparent distress Eye Eye exam: Present normal appearance and PERRL ENT ENT exam: Present normal exam and normal oropharynx Respiratory Respiratory exam: Present normal lung sounds bilaterally; Absent respiratory distress or wheezes Cardiovascular Cardiovascular exam: Present regular rate and normal rhythm Abdominal Exam Abdominal exam: Present soft, tenderness (Mildly tender to palpation right upper quadrant), normal bowel sounds, hernia (Umbilical) and other (Obese); Absent distention, guarding, rebound, rigidity or Vyas's sign Extremities Exam Extremities exam: Present normal inspection and full ROM Back Exam Back exam: Present normal inspection Neurological Exam Neurological exam: Present alert and oriented X3 Psychiatric Psychiatric exam: Present normal affect and normal mood Skin Skin exam: Present warm, dry and intact Medical Decision Making <ALBERTO Lazaro - Last Filed: 05/28/23 20:30> Medical Records Medical records reviewed: Yes I reviewed the patient's medical records. Blas Inquiry Pt receiving controlled substance: No Blas was queried for this patient: Yes Vital Signs: 05/28/23 17:31 05/28/23 19:04 05/28/23 20:43 Temperature 99.2 F 98.4 F Temperature Source Oral Oral Pulse Rate 60 75 Pulse Rate [Left Radial] 107 H Respiratory Rate 18 18 18 Blood Pressure 153/93 H 119/87 Blood Pressure [Right Arm] 144/82 H Blood Pressure Mean [Right Arm] 102 Blood Pressure Source [Right Arm] Automatic Cuff Blood Pressure Position [Right Arm] Sitting 02 Sat by Pulse Oximetry 97 98 Oxygen Delivery Method Room Air Room Air Lab Data Lab results reviewed: Yes I reviewed the patient's lab results. Lab Results 05/28/23 18:53: WBC 9.4, RBC 4.17 L, Hgb 13.0, Hct 41.4, MCV 99.3 H, MCH 31.2, MCHC 31.5 L, RDW 13.1, Plt Count 376, MPV 8.1, Neut % (Auto) 61.0, Lymph % (Auto) 31.8, [place] % (Auto) 4.7, Eos % (Auto) 1.7, Baso % (Auto) 0.9, Neut # (Auto) 5.7, Lymph # (Auto) 3.0, [place] # (Auto) 0.4, Eos # (Auto) 0.2, Baso # (Auto) 0.1, PT 10.3, INR 0.95, D-Dimer 0.42, Sodium 139, Potassium 4.1, Chloride 107, Carbon Dioxide 30, Anion Gap 6.1, BUN 13, Creatinine 0.80, Estimated Creat Clear 154, Estimated GFR 86, Est GFR ( Amer) 104, Glucose 81, Calcium 9.3, Magnesium 2.0, Total Bilirubin 0.1 L, AST 21, ALT 15, Alkaline Phosphatase 53, Troponin I < 0.01, Total Protein 6.8, Albumin 4.0, Globulin 2.8, Albumin/Globulin Ratio 1.4, Lipase 44, HCG, Quant < 2 05/28/23 19:07: Urine Color Yellow, Urine Appearance Clear, Urine pH 6.5, Ur Specific [place] 1.020, Urine Protein Negative, Urine Glucose (UA) Negative, Urine Ketones Negative, Urine Blood Negative, Urine Nitrate Negative, Urine Bilirubin Negative, Urine Urobilinogen 0.2, Ur Leukocyte Esterase Negative, Urine RBC None, Urine WBC None, Ur Squamous Epith Cells Occasional, Urine Bacteria None, Urine Opiates Screen Negative, Urine Methadone Screen Negative, Ur Barbituates Screen Negative, Ur Phencyclidine Scrn Negative, Ur Amphetamines Screen Negative, U Benzodiazepines Scrn Negative, Urine Cocaine Screen Negative, U Marijuana (THC) Screen Positive H 05/28/23 19:09: Lactate 0.9 05/28/23 18:53 05/28/23 18:53 Orders (Tests/Meds): ED MEDICATIONS Discontinued Medications Generic Name Dose Route Start Last Admin Trade Name Freq PRN Reason Stop Dose Admin Acetaminophen 1,000 mg 05/28/23 18:28 05/28/23 19:02 Acetaminophen 1,000mg/100ml Vial IV 05/28/23 18:29 1,000 mg ONCE ONE Administration Belladonna Alkaloids 60 ml 05/28/23 18:28 05/28/23 19:03 Belladonna Alkaloids 60 Ml Ml PO 05/28/23 18:29 60 ml ONCE ONE Administration Lactated Ringer's 1,000 mls @ 999 mls/hr 05/28/23 18:28 05/28/23 19:04 Lactated Ringer's 1000 Ml Bag IV 05/28/23 19:28 999 mls/hr .Q1H1M ONE Administration Ketorolac Tromethamine 15 mg 05/28/23 18:28 05/28/23 19:03 Ketorolac 30mg/Ml Vial IV 05/28/23 18:29 15 mg ONCE ONE Administration Tramadol HCl 100 mg 05/28/23 20:04 05/28/23 20:12 Tramadol 50mg Tablet PO 05/28/23 20:05 100 mg ONCE ONE Administration ORDERS Category Date Time Status CBC w/Auto Diff [Complete Blood Count Auto Diff] Stat Lab 05/28/23 18:53 Completed CMP [Comprehensive Metabolic Panel] Stat Lab 05/28/23 18:53 Completed D-Dimer Stat Lab 05/28/23 18:53 Completed HCG,Quantitative Stat Lab 05/28/23 18:53 Completed INR [Prothrombin Time INR] Stat Lab 05/28/23 18:53 Completed Lactic Acid Stat Lab 05/28/23 19:09 Completed Lipase Stat Lab 05/28/23 18:53 Completed Magnesium Stat Lab 05/28/23 18:53 Completed Trop I [Troponin I] Stat Lab 05/28/23 18:53 Completed UA [Urinalysis and Microscopic] Stat Lab 05/28/23 19:07 Completed UDS [Drug Screen,Urine] Stat Lab 05/28/23 19:07 Completed Medical Decision Narrative: In summary patient is a 28-year-old female who presents to the emergency department for evaluation of right upper quadrant abdominal pain. Patient is hemodynamically stable and afebrile upon arrival. Physical exam is remarkable for mild right upper quadrant tenderness that has a negative Vyas sign. Differential diagnosis includes biliary colic/dyskinesia versus gastrointestinal causes including ulcer or obstruction etc. Initial workup will be conducted with hematologic labs. Initial interventions include Toradol tramadol acetaminophen. Initial workup reviewed by me is nonactionable including normal liver enzymes normal bilirubin no evidence of infection including a normal white count with no shift. Review of patient records shows a CT scan abdomen pelvis that shows no biliary ductal dilatation and a normal gallbladder without any evidence of stones as seen on CT imaging. Upon repeat evaluation resolution of her symptoms but also no worsening.. Given this appropriate for discharge with instructions for bland diet, says as needed, and to return to the PCP, general surgeon or an ER if her condition symptoms change or worsen as needed. Patient verbalized understanding and agreement with plan <Samra Grover, DO - Last Filed: 05/28/23 23:57> Vital Signs: 05/28/23 17:31 05/28/23 19:04 05/28/23 20:43 Temperature 99.2 F 98.4 F Temperature Source Oral Oral Pulse Rate 60 75 Pulse Rate [Left Radial] 107 H Respiratory Rate 18 18 18 Blood Pressure 153/93 H 119/87 Blood Pressure [Right Arm] 144/82 H Blood Pressure Mean [Right Arm] 102 Blood Pressure Source [Right Arm] Automatic Cuff Blood Pressure Position [Right Arm] Sitting 02 Sat by Pulse Oximetry 97 98 Oxygen Delivery Method Room Air Room Air Lab Data Lab Results 05/28/23 18:53: WBC 9.4, RBC 4.17 L, Hgb 13.0, Hct 41.4, MCV 99.3 H, MCH 31.2, MCHC 31.5 L, RDW 13.1, Plt Count 376, MPV 8.1, Neut % (Auto) 61.0, Lymph % (Auto) 31.8, [place] % (Auto) 4.7, Eos % (Auto) 1.7, Baso % (Auto) 0.9, Neut # (Auto) 5.7, Lymph # (Auto) 3.0, [place] # (Auto) 0.4, Eos # (Auto) 0.2, Baso # (Auto) 0.1, PT 10.3, INR 0.95, D-Dimer 0.42, Sodium 139, Potassium 4.1, Chloride 107, Carbon Dioxide 30, Anion Gap 6.1, BUN 13, Creatinine 0.80, Estimated Creat Clear 154, Estimated GFR 86, Est GFR ( Amer) 104, Glucose 81, Calcium 9.3, Magnesium 2.0, Total Bilirubin 0.1 L, AST 21, ALT 15, Alkaline Phosphatase 53, Troponin I < 0.01, Total Protein 6.8, Albumin 4.0, Globulin 2.8, Albumin/Globulin Ratio 1.4, Lipase 44, HCG, Quant < 2 05/28/23 19:07: Urine Color Yellow, Urine Appearance Clear, Urine pH 6.5, Ur Specific [place] 1.020, Urine Protein Negative, Urine Glucose (UA) Negative, Urine Ketones Negative, Urine Blood Negative, Urine Nitrate Negative, Urine Bilirubin Negative, Urine Urobilinogen 0.2, Ur Leukocyte Esterase Negative, Urine RBC None, Urine WBC None, Ur Squamous Epith Cells Occasional, Urine Bacteria None, Urine Opiates Screen Negative, Urine Methadone Screen Negative, Ur Barbituates Screen Negative, Ur Phencyclidine Scrn Negative, Ur Amphetamines Screen Negative, U Benzodiazepines Scrn Negative, Urine Cocaine Screen Negative, U Marijuana (THC) Screen Positive H 05/28/23 19:09: Lactate 0.9 Orders (Tests/Meds): ED MEDICATIONS Discontinued Medications Generic Name Dose Route Start Last Admin Trade Name Freq PRN Reason Stop Dose Admin Acetaminophen 1,000 mg 05/28/23 18:28 05/28/23 19:02 Acetaminophen 1,000mg/100ml Vial IV 05/28/23 18:29 1,000 mg ONCE ONE Administration Belladonna Alkaloids 60 ml 05/28/23 18:28 05/28/23 19:03 Belladonna Alkaloids 60 Ml Ml PO 05/28/23 18:29 60 ml ONCE ONE Administration Lactated Ringer's 1,000 mls @ 999 mls/hr 05/28/23 18:28 05/28/23 19:04 Lactated Ringer's 1000 Ml Bag IV 05/28/23 19:28 999 mls/hr .Q1H1M ONE Administration Ketorolac Tromethamine 15 mg 05/28/23 18:28 05/28/23 19:03 Ketorolac 30mg/Ml Vial IV 05/28/23 18:29 15 mg ONCE ONE Administration Tramadol HCl 100 mg 05/28/23 20:04 05/28/23 20:12 Tramadol 50mg Tablet PO 05/28/23 20:05 100 mg ONCE ONE Administration ORDERS Category Date Time Status CBC w/Auto Diff [Complete Blood Count Auto Diff] Stat Lab 05/28/23 18:53 Completed CMP [Comprehensive Metabolic Panel] Stat Lab 05/28/23 18:53 Completed D-Dimer Stat Lab 05/28/23 18:53 Completed HCG,Quantitative Stat Lab 05/28/23 18:53 Completed INR [Prothrombin Time INR] Stat Lab 05/28/23 18:53 Completed Lactic Acid Stat Lab 05/28/23 19:09 Completed Lipase Stat Lab 05/28/23 18:53 Completed Magnesium Stat Lab 05/28/23 18:53 Completed Trop I [Troponin I] Stat Lab 05/28/23 18:53 Completed UA [Urinalysis and Microscopic] Stat Lab 05/28/23 19:07 Completed UDS [Drug Screen,Urine] Stat Lab 05/28/23 19:07 Completed Medical Decision Narrative: In summary patient is a 28-year-old female who presents to the emergency department for evaluation of right upper quadrant abdominal pain. Patient is hemodynamically stable and afebrile upon arrival. Physical exam is remarkable for mild right upper quadrant tenderness that has a negative Yvas sign. Differential diagnosis includes biliary colic/dyskinesia versus gastrointestinal causes including ulcer or obstruction etc. Initial workup will be conducted with hematologic labs. Initial interventions include Toradol tramadol acetaminophen. Initial workup reviewed by me is nonactionable including normal liver enzymes normal bilirubin no evidence of infection including a normal white count with no shift. Review of patient records shows a CT scan abdomen pelvis that shows no biliary ductal dilatation and a normal gallbladder without any evidence of stones as seen on CT imaging. Upon repeat evaluation resolution of her symptoms but also no worsening.. Given this appropriate for discharge with instructions for bland diet, says as needed, and to return to the PCP, general surgeon or an ER if her condition symptoms change or worsen as needed. Patient verbalized understanding and agreement with plan I was consulted by the TITO, and we discussed the complexity of the problems being addressed. I approved the treatment and management plan for this patient's care in the emergency department, thus performing a substantive portion of the medical decision making. Samra Grover, DO Critical Care <ALBERTO Lazaro - Last Filed: 05/28/23 20:30> Critical Care Time Critical Care Time: No
[2023-05-28] MEDS: ACETAMINOPHEN 1,000MG/100ML VIAL 1000 MG IV (19:02)
[2023-05-28] MEDS: KETOROLAC 30MG/ML VIAL 15 MG IV (19:03)
[2023-05-28] MEDS: BELLADONNA ALKALOIDS 60 ML ML PO (19:03)
[2023-05-28 19:04] VITALS: BP 153/93; PULSE 60; RESP 18; TEMP 37.3; O2SAT 98
[2023-05-28] MEDS: LACTATED RINGERS 1000ML 1,000 ML 999 ML IV (19:04)
[2023-05-28 19:06] LABS: Basophils # 0.1 K/mm3 (0-0.2); Basophils % 0.9 % (0.1-2.0); Eosinophils # 0.2 K/mm3 (0.0-0.4); Eosinophils % 1.7 % (0.1-12.0); Hematocrit 41.4 % (37.0-47.0); Lymphocytes % 31.8 % (10-50); Mean Corpuscular HGB Conc 31.5 g/dL (31.8-35.4); Mean Corpuscular Hemoglobin 31.2 pg (27.0-31.2); Mean Corpuscular Volume 99.3 fl (81-99); Mean Platelet Volume 8.1 fl (7.4-10.4); Monocytes # 0.4 K/mm3 (0.1-1.0); Monocytes % 4.7 % (1.7-9.3); Neutrophils # 5.7 K/mm3 (1.8-7.8); Platelet Count 376 K/mm3 (142-424); Red Blood Count 4.17 M/mm3 (4.20-5.40); Red Cell Distribution Width 13.1 % (11.5-17.5); White Blood Count 9.4 K/mm3 (4.8-10.8)
[2023-05-28 19:08] LABS: Chloride 107 mmol/L (98-107); Potassium 4.1 mmoL/L (3.5-5.1); Sodium 139 mmol/L (136-145)
[2023-05-28 19:11] LABS: Alanine Aminotransferase 15 U/L (12-78); Albumin/Globulin Ratio 1.4 (1.1-1.8); Alkaline Phosphatase 53 U/L (38-126); Anion Gap 6.1 mEq/L (5-15); Aspartate Amino Transferase 21 U/L (14-36); Blood Urea Nitrogen 13 mg/dl (7-17); Calcium 9.3 mg/dl (8.4-10.2); Carbon Dioxide 30 mmol/L (22.0-30.0); Creatinine Clearance Estimated 154 mL/min (50-200); Estimated Glomerular Filt Rate 86 ml/min (>60); GFR (African American) 104 ML/MIN (>60); Globulin 2.8 g/dL (1.3-3.2); Glucose 81 mg/dl (74-100); Lipase 44 U/L (23-300); Total Protein,Serum 6.8 g/dl (6.3-8.2)
[2023-05-28 19:12] LABS: Microscopic, Urine URINE MICROSCOPIC (MICROSCOPIC)
[2023-05-28 19:12] LABS: INR 0.95 (0.9-1.1); Prothrombin Time 10.3 seconds (10.1-12.5)
[2023-05-28 19:17] LABS: Appearance,Urine CLEAR (Clear); Bilirubin,Urine Negative (Negative); Blood, Urine Negative (Negative); Color,Urine YELLOW (Yellow); Glucose,Urine (UA) Negative (Negative); Ketones,Urine Negative (Negative); Leukocyte Esterase,Urine Negative (Negative); Nitrate,Urine Negative (Negative); PH,Urine 6.5 (5.0-8.5); Protein,Urine Negative (Negative); Urobilinogen,Urine 0.2 EU/dl (0.2)
[2023-05-28 19:26] LABS: Bilirubin,Total 0.1 mg/dl (0.2-1.3); Troponin I < 0.01 ng/ml (0.00-0.034)
[2023-05-28 19:29] LABS: Squamous Epithelial Cell,Urine Occasional #/hpf (0-5)
[2023-05-28 19:33] LABS: Barbiturates Screen,Urine Negative ng/ml (<200); Benzodiazepines Screen,Urine Negative ng/ml (<200)
[2023-05-28 19:34] LABS: Cannabinoid Screen,Urine Positive ng/ml (<50)
[2023-05-28 19:35] LABS: Cocaine Screen,Urine Negative ng/ml (<300); Methadone Screen,Urine Negative ng/ml (<300)
[2023-05-28 19:40] LABS: Lactic Acid 0.9 mmol/L (0.7-2.1)
[2023-05-28 19:43] LABS: HCG,Quantitative < 2 mIU/ml (0-5.42)
[2023-05-28 19:44] LABS: Opiate Screen,Urine Negative ng/ml (<300); Phencyclidine Screen,Urine Negative ng/ml (<25)
[2023-05-28 19:46] LABS: D-Dimer 0.42 ug/mL (0.0-0.5)
[2023-05-28] MEDS: TRAMADOL 50MG TABLET 100 MG PO (20:12)
--- NOTE | 2023-05-28 20:12 | PC.NURSE ---
rounded on patient, states she would like to speak to the doctor, Don informed and he will co in and talk to her
[2023-05-28 20:22] LABS: Amphetamine/Metha Screen,Urine Negative ng/ml (<1000)
[2023-05-28 20:43] VITALS: BP 119/87; PULSE 75; RESP 18; TEMP 36.9
== END 2023-05-28 20:46 | disposition home or self-care (01) ==
PROVIDERS: Physician Assistant; Emergency Provider Emergency Medicine; PCP Nurse Practitioner Family
DX: R10.11 Right upper quadrant pain (principal); R11.0 Nausea; F17.200 Nicotine dependence, unspecified, uncomplicated
CPT/HCPCS: 80053; 80307; 81001; 83605; 83690; 83735; 84484; 84702; 85025; 85378; 85610; 96361; 96374; 96375; 99285; J0131

== ENCOUNTER 2024-07-06 14:04 | Outpatient (POV) | payer MEDICAID, SELFPAY ==
--- NOTE | 2024-07-06 14:05 | A.OFFVIS_ITS ---
HPI Data of Consult Patient: new to practice Consult date: 07/06/24 Requesting Physician: Samra Pizarro APRN Primary Care Provider: Michael Fraga MD Consult Narrative Reason for consult: Low back pain, hip pain History of present illness: Ms. Martin is a 29 year old female who presents today as a new patient. She is a referral fromDr. Fraga. Today she rates her pain a 6 out of 10. Patient states that she has longstanding pain in her low back and bilateral hips this is gone on since about the age of 14 or 15 when she had several lipomas removed. Patient does describe it as a chronic pain that is worse with prolonged standing, sitting or laying. She states with those certain movements it is much more intense. Patient states the only thing that she has noticed significant improvement with is her oral medications. Patient was seen pain management in [place] however she states that the one time they did not injections that it made her pain much worse and that she has reservations regarding doing any additional. Patient states that she left that office because she felt like they were rude. Patient states she has tried oral medications including Tylenol and ibuprofen along with heat and ice and topicals with minimal improvement. Patient states that the Tylenol 3 she is currently prescribed from her primary care does seem to help on some occasions however it will be hit or miss. Patient states that she has had physical therapy and chiropractor therapy with no additional improvement. Patient did have imaging over at [facility].Patient is currently on scheduled medications including Vyvanse, gabapentin, Tylenol 3 from an outside provider. Patient has been tried on Bradner in the past. Her Blas has been reviewed. CC: Samra Pizarro APRN [facility] Disclaimer: The information contained in this section may have been updated after the patient was seen, as this information can be updated by other users. Social History (Updated 01/13/23 @ 12:53 by Haley Pham MD) Smoking Status: Current every day smoker alcohol intake: never current occupational status: other Travel in the last 8 weeks: None Review of Systems Review of Systems Review of systems:: pertinent systems reviewed and negative unless documented below Review of systems (narrative): Review of Systems: General: No recent weight changes, no fever, no sleep disturbances Respiratory: No cough, no shortness of air, no recurring pulmonary infections Cardiovascular/peripheral vascular: No chest pain, no palpitations, no edema, no shortness of breath Gastrointestinal: No new onset incontinence, normal bowel movements reported Genitourinary: No new onset incontinence Musculoskeletal: Low back pain, bilateral hip pain Psychiatric: [Normal mood/affect] Neurological: [Denies weakness in extremities], [denies balance issues] Meds Home Medications and Allergies Home Medications ?Medication ?Instructions ?Recorded ?Confirmed ?Type cefdinir 300 mg capsule 300 mg PO BID 10 days #20 caps 01/13/23 Rx ibuprofen 800 mg tablet 800 mg PO TID PRN pain 7 days #20 01/13/23 Rx tabs ondansetron 4 mg disintegrating 4 mg PO Q6H PRN nausea and 01/13/23 Rx tablet vomiting 5 days #20 tabs lidocaine 5 % topical patch 1 patch topical Q24H #15 ea 01/14/23 Rx methocarbamol 500 mg tablet 500 mg PO Q8H 7 days #21 tabs 01/14/23 Rx prednisone 20 mg tablet 40 mg (2 x 20 mg) PO BID 5 days 01/20/23 Rx #20 tabs ondansetron 4 mg disintegrating 4 mg PO Q6H PRN nausea and 03/02/23 Rx tablet vomiting 5 days #20 tabs promethazine 25 mg tablet 25 mg PO TID PRN nausea and 03/02/23 Rx vomiting 5 days #20 tabs New Prescriptions to Start Prescriptions: Allergies Allergy/AdvReac Type Severity Reaction Status Date / Time adhesive tape Allergy Rash Verified 01/14/23 19:19 ciprofloxacin (From Cipro) Allergy Verified 01/13/23 11:45 Objective Narrative: Physical Exam: General: Alert and oriented x3, no acute distress, pleasant and cooperative Lungs: Respirations even and unlabored, symmetrical chest expansion Eyes: PERRL Musculoskeletal: Flexion and extension of lumbar [spine] somewhat guarded secondary to pain, point tenderness along bilateral SI joints Neurological: Speech clear, no gross sensory deficit Additional findings Additional findings: Lumbar MRI without contrast 03/21/2024 Findings: No evidence of fracture or inflammatory marrow process. No marrow edema seen. No focal lesions are identified. Conus medullaris terminates at L1 vertebral body level. Visualized paraspinous soft tissues unremarkable. L1-S1 unremarkable Assessment and Plan *Assessment and plan (1) Low back pain: Status: Acute Category: Medical Code(s): M54.50 - Low back pain, unspecified (2) Hip pain, bilateral: Status: Acute Category: Medical Code(s): M25.551 - Pain in right hip; M25.552 - Pain in left hip Plan I did discuss with the patient that we are at conservative pain management and that we do offer a lot of injection therapy options. Patient is not interested in additional injections at this time. I did application counselor her that we can try more conservative options like ordering a compounded cream. Patient agrees with this plan of care. Patient was counseled that we will send this order in and follow-up with her in 2 weeks. Patient agrees with this option. Patient has been instructed to contact the clinic with any concerns before the next appointment. Dr. Seo has reviewed this note and agrees with this plan of care. This note was dictated using voice recognition software and make contain errors or omissions. All injections are used with Lidocaine, Bupivacaine and Depo Medrol. Occasionally urine drug screen is needed to verify patient's compliance with our office pain contract. This is ordered based off specific treatments related to chronic pain with the potential to abuse certain medications.
[2024-07-06 14:48] VITALS: BP 137/90; PULSE 107; RESP 18; O2SAT 98; BMI 27.8
== END 2024-07-06 23:59 | disposition home or self-care (01) ==
LOC: SC.PAIN 14:05
PROVIDERS: PCP Family Medicine; Visit Provider Nurse Practitioner Family
DX: M54.50 Low back pain, unspecified (principal); M25.551 Pain in right hip; M25.552 Pain in left hip; F17.200 Nicotine dependence, unspecified, uncomplicated
CPT/HCPCS: 99202; G0463

== ENCOUNTER 2024-08-22 16:53 | Emergency (ER) | payer MEDICAID, SELFPAY ==
[2024-08-22 17:09] VITALS: PULSE 120; RESP 20; TEMP 36.5; O2SAT 100; BMI 27.3
[2024-08-22 17:17] VITALS: BP 134/102; PULSE 106; O2SAT 100
[2024-08-22 17:32] VITALS: BP 142/93; PULSE 115; O2SAT 100
--- NOTE | 2024-08-22 17:38 | ED_ITS ---
<Statement entered by Samra Grover DO - 08/22/24 20:53> I was consulted by the TITO, and we discussed the complexity of the problems being addressed. I approved the treatment and management plan for this patient's care in the emergency department, thus performing a substantive portion of the medical decision making. Samra Grover DO Discharge Plan Disposition Patient Disposition: Home, Self-Care Condition: Good Prescriptions Prescriptions: No Action ibuprofen 800 mg tablet 800 mg PO TID PRN (Reason: pain) 7 Days Qty: 20 0RF gabapentin 600 mg tablet 600 mg PO TID Patient Comments: TAKE 1 TABLET BY MOUTH THREE TIMES DAILY acetaminophen-codeine 300-30 mg tablet 1 tab PO Q6HP PRN (Reason: Pain) Patient Comments: TAKE 1 TABLET BY MOUTH EVERY 6 HOURS NEEDED FOR SEVERE PAIN dextroamphetamine-amphetamine 30 mg tablet 30 mg PO BID Patient Comments: TAKE 1 TABLET BY MOUTH TWICE DAILY 4 TO 6 HOURS APART WITH FOOD. Ajovy Autoinjector 225 mg/1.5 mL auto-injector 225 mg SQ Q30D Patient Comments: ADMINISTER 1.5 ML UNDER THE SKIN EVERY 30 DAYS DIRECTED Referrals Follow up/Referrals: Philip Trotter MD [Referring] - See instructions Michael Fraga MD [Primary Care Provider] - See instructions Activity Restrictions/Add. Instructions Additional Instructions/Restrictions: Please follow up with your orthopedist tomorrow. Return to the ER if you have any severe worsening of pain. Clinical Impressions Clinical Impression: Labral tear of hip joint Instructions Patient Instructions: DI for Hip Pain Print Language Print Language: Kinyarwanda Discharge ED Provider: Samra Grover General Adult HPI General Chief complaint: PAIN Stated complaint: pain in rt hip from a tear in hip Time Seen by Provider: 08/22/24 17:00 Mode of Arrival: Ambulatory Source of Information: Patient Description of Symptoms (Recalled from ER Triage Doc. by RN): pt c/o R hip pain that radiates distally to her femur. pt states this has been ongoing x2wks. She is an ortho pt of 's whom she has an appointment with tomorrow. She recently had an MRI diagnosing her with a R labrum tear. pt states the pain has became untolerable. She reports taking tylenol 3 about 3 hours ago, 800mg ibuprofen 2hrs ago, and 750mg robaxin 2hrs ago without relief. History of Present Illness HPI narrative: Patient presents complaining of right hip pain. She was diagnosed with a superior labrum tear via MRI. She has follow-up with her orthopedist tomorrow. She reports that she took 2 Tylenol 3 three hours ago, as well as Robaxin and ibuprofen. She reports the pain radiates down into her leg. She reports that she has also tried steroids recently without improvement. She has declined any injections with pain management. She reports that Percocet prescribed by the [place] [facility] was helpful. Denies . MD complaint: hip pain Onset (ago): week(s) (2) Location: right and lower extremity Radiation: extremity Severity: severe Consistency: constant Relieving factors: none Exacerbating factors: movement Associated symptoms: negative fever/chills or nausea/vomiting Related Data Home Medications ?Medication ?Instructions ?Recorded ?Confirmed acetaminophen 300 mg-codeine 30 mg 1 tab PO Q6HP PRN Pain 07/06/24 07/06/24 tablet dextroamphetamine-amphetamine 30 30 mg PO BID 07/06/24 07/06/24 mg tablet fremanezumab-vfrm 225 mg/1.5 mL 225 mg SQ Q30D MIGRAINES 07/06/24 07/06/24 subcutaneous auto-injector (Ajovy) gabapentin 600 mg tablet 600 mg PO TID Pain 07/06/24 07/06/24 Previous Rx's ?Medication ?Instructions ?Recorded ibuprofen 800 mg tablet 800 mg PO TID PRN pain 7 days #20 01/13/23 tabs Allergies Allergy/AdvReac Type Severity Reaction Status Date / Time adhesive tape Allergy Rash Verified 01/14/23 19:19 ciprofloxacin (From Cipro) Allergy Verified 01/13/23 11:45 [facility] Disclaimer: The information contained in this section may have been updated after the niecy nt was seen, as this information can be updated by other users. Medical History (Updated 08/22/24 @ 18:26 by ALBERTO Ramirez) Bilateral sacroiliitis Family History (Updated 07/06/24 @ 14:50 by Karlene Steele RN) Other Unknown family medical history Social History (Updated 07/06/24 @ 14:51 by Karlene Steele RN) Smoking Status: Current every day smoker alcohol intake: never current occupational status: unemployed Travel in the last 8 weeks?: None Have you lived/traveled outside [place] in past 30 days?: No Contact w/someone who lives/traveled outside US past 30 days?: No Exposure to someone with infectious disease in past 14 days?: No Do you have a fever (greater than 100.4 F or 38 C)?: No Have you tested positive for COVID-19?: No Exposed to someone with COVID-19 in past 14 days?: No Do you have a sore throat?: No Do you have a cough?: No Do you have any weakness?: No Do you have any diarrhea?: No Are you experiencing any unusual bleeding?: No Do you have any muscle aches/pain?: No Do you have any abdominal pain?: No Are you experiencing loss of taste or smell?: No Other Medical History Have you received the Flu Vaccine for this season: No Have you received the Pneumonia Vaccine: No ROS Obtained: Yes Systems reviewed as appropriate & no additional complaints except as documented Physical Exam General General appearance: alert and in no apparent distress Head Head exam: atraumatic and normocephalic Eye Eye exam: Present normal appearance and EOMI Chest Chest inspection: Present symmetric chest wall rise Respiratory Respiratory exam: Present normal lung sounds bilaterally; Absent wheezes or stridor Cardiovascular Cardiovascular exam: Present regular rate and normal rhythm; Absent systolic murmur Expanded Lower Extremity Exam Right: Hip/Pelvis exam: Present full ROM (painful flexion, internal and external rotation ) and tenderness (lateral ) Neurovascular/Tendon exam: Present normal capillary refill; Absent pulse deficit Neurological Exam Neurological exam: Present alert and oriented X3 Psychiatric Psychiatric exam: Present normal affect and normal mood Skin Skin exam: Present warm, dry and intact Medical Decision Making Medical Records Screening: Per USPSTF and CDC recommendations, given the prevalence of disease in our region, it is our hospital?s policy to screen for HIV and viral Hepatitis for all patients aged 18 and over and those with ongoing risk factors. Blas Inquiry Pt receiving controlled substance: No Vital Signs: 08/22/24 17:09 08/22/24 17:17 08/22/24 17:32 Temperature 97.7 F Temperature Source Oral Pulse Rate 106 H 115 H Pulse Rate [Left] 120 H Respiratory Rate 20 Blood Pressure 134/102 H 142/93 H Blood Pressure Mean Blood Pressure Source [Right Arm] Automatic Cuff Blood Pressure Position [Right Arm] Sitting 02 Sat by Pulse Oximetry 100 100 100 Oxygen Delivery Method Room Air Room Air Room Air 08/22/24 18:00 Temperature Temperature Source Pulse Rate 99 H Pulse Rate [Left] Respiratory Rate Blood Pressure 138/85 Blood Pressure Mean 102 Blood Pressure Source [Right Arm] Blood Pressure Position [Right Arm] 02 Sat by Pulse Oximetry 100 Oxygen Delivery Method Orders (Tests/Meds): ED MEDICATIONS Generic Name Dose Route Start Last Admin Trade Name Freq PRN Reason Stop Dose Admin Oxycodone HCl 5 mg 08/22/24 17:24 08/22/24 18:25 Oxycodone 5mg Immediate Release Tablet PO 09/21/24 17:23 5 mg Q4HP PRN Administration Severe Pain (7-10) Discontinued Medications Generic Name Dose Route Start Last Admin Trade Name Freq PRN Reason Stop Dose Admin Ketorolac Tromethamine 60 mg 08/22/24 17:24 08/22/24 18:03 Ketorolac 60mg/2ml Vial IM 08/22/24 17:25 60 mg ONCE ONE Administration ORDERS Category Date Time Status HIV Combo Stat Lab 08/22/24 17:17 Ordered Hepatitis C Ab Qual. W/ RFX Stat Lab 08/22/24 17:17 Ordered Medical Decision Narrative: In summary patient is a 29-year-old female who presents the emergency department for evaluation of right hip pain. Patient is tachycardic upon arrival, afebrile. Lateral right hip tenderness. Differential diagnosis includes labrum tear, contusion, fracture. Reviewed patient's MRI results on her portal, she was positive for a labrum tear. Will treat with Toradol and 1 dose of oxycodone in the emergency department . Upon repeat evaluation tachycardia resolved with pain management. Given this patient is appropriate for discharge home with follow-up with orthopedist tomorrow. Critical Care Critical Care Time Critical Care Time: No
[2024-08-22 18:00] VITALS: BP 138/85; PULSE 99; O2SAT 100
[2024-08-22] MEDS: KETOROLAC 60MG/2ML VIAL 60 MG IM (18:03)
[2024-08-22] MEDS: OXYCODONE 5MG IMMEDIATE RELEASE TABLET 5 MG PO (18:25)
[2024-08-22 18:33] VITALS: BP 133/82; PULSE 90; RESP 16; TEMP 36.5; O2SAT 98
== END 2024-08-22 18:34 | disposition home or self-care (01) ==
PROVIDERS: Emergency Provider Emergency Medicine; PCP Family Medicine
DX: S73.191A Other sprain of right hip, initial encounter (principal); M25.551 Pain in right hip; X58.XXXA Exposure to other specified factors, initial encounter
CPT/HCPCS: 96372; 99283; J1885